=== PATIENT | female | born 1945 | race Caucasian/White ===

== ENCOUNTER 2016-08-21 11:58 | Emergency (ER) | payer MEDICARE, BC ==
[2016-08-21 14:29] LABS: HEMOGLOBIN 13.4 gm/dl (12.3-15.3); RED BLOOD COUNT 4.33 M/UL (4.00-5.10); WHITE BLOOD COUNT 5.9 K/UL (4.5-11.0)
[2016-08-21 14:49] LABS: BUN/CREATININE RATIO 28 (0-10)
== END 2016-08-21 16:20 | disposition home or self-care (01) ==
LOC: ER1 11:58
PROVIDERS: Physician Assistant
DX: E87.6 Hypokalemia (principal); I10 Essential (primary) hypertension; Z79.899 Other long term (current) drug therapy
CPT/HCPCS: 36415; 80048; 84132; 85025; 93005; 99285

== ENCOUNTER → 2016-08-24 | Outpatient (CLI) | payer MEDICARE, BC ==
[2016-08-24 09:56] LABS: BUN/CREATININE RATIO 24 (0-10)
== END ==
LOC: LAB 09:26
PROVIDERS: Physician Assistant
DX: E87.6 Hypokalemia (principal)
CPT/HCPCS: 36415; 80048

== ENCOUNTER → 2020-09-11 | Outpatient (CLI) | payer MEDICARE, BC | LOC: ECHO 09:34 | DX: I10 Essential (primary) hypertension (principal); I51.7 Cardiomegaly; I50.30 Unspecified diastolic (congestive) heart failure | CPT/HCPCS: ECHO; 93306 ==

== ENCOUNTER → 2020-12-25 | Outpatient (CLI) | payer MEDICARE, BC ==
[2020-12-25 11:42] LABS: BUN/CREATININE RATIO 30 (0-10)
== END ==
LOC: LAB 10:38
PROVIDERS: Internal Medicine Cardiovascular Disease
DX: I10 Essential (primary) hypertension (principal); R60.0 Localized edema
CPT/HCPCS: 36415; 80048